=== PATIENT | female | born 1965 | race Caucasian/White ===

== ENCOUNTER → 2023-02-02 | Outpatient (REF) | payer BC | LOC: M SFHCWAGY 12:57 | PROVIDERS: ATTEND Nurse Practitioner Family | DX: Z12.4 Encounter for screening for malignant neoplasm of cervix (principal) ==

== ENCOUNTER → 2023-02-02 | Outpatient (CLI) | payer BC | LOC: M WHC 10:17 | PROVIDERS: ATTEND Nurse Practitioner Family | DX: Z12.31 Encounter for screening mammogram for malignant neoplasm of breast (principal) ==

== ENCOUNTER 2024-01-11 09:30 | Day surgery (SDC) | payer BC ==
[~2024-01-11] VITALS: Ht 160 cm; Wt 91.6 kg
[~2024-01-11 09:30] MED LIST: AMLO1TAB24 PO; CIDA500T2 PO; CLAR10CA3 PO; CURC500C PO; D-101000 PO; FAMO20TA PO; LISI20TA35 PO; THERTAB52 PO
[2024-01-11] MEDS: NS 1,000 ML IV ONE (10:30)
[2024-01-11 11:26] VITALS: TEMP 96.7
[2024-01-11 11:46] VITALS: BP 120/92; O2SAT 100
== END 2024-01-11 11:55 | disposition home or self-care (01) ==
LOC: M OPP 09:30
PROVIDERS: ATTEND Surgery
DX: Z12.11 Encounter for screening for malignant neoplasm of colon (principal); D12.6 Benign neoplasm of colon, unspecified; K64.1 Second degree hemorrhoids; K63.89 Other specified diseases of intestine; Z87.891 Personal history of nicotine dependence; Z79.1 Long term (current) use of non-steroidal anti-inflammatories (NSAID); Z79.899 Other long term (current) drug therapy

== ENCOUNTER → 2024-02-08 | Outpatient (CLI) | payer BC | LOC: M WHC 10:16 | PROVIDERS: ATTEND Internal Medicine | DX: Z12.31 Encounter for screening mammogram for malignant neoplasm of breast (principal); R92.323 Mammographic fibroglandular density, bilateral breasts; I50.9 Heart failure, unspecified; I27.20 Pulmonary hypertension, unspecified ==

== ENCOUNTER → 2025-02-11 | Outpatient (CLI) | payer OTHER | LOC: M WHC 10:07 | PROVIDERS: ATTEND Nurse Practitioner Adult Health | DX: Z12.31 Encounter for screening mammogram for malignant neoplasm of breast (principal); R92.323 Mammographic fibroglandular density, bilateral breasts ==

== ENCOUNTER → 2025-05-06 | Outpatient (CLI) | payer OTHER | LOC: M RAD 16:30 | PROVIDERS: ATTEND Nurse Practitioner Family | DX: R07.89 Other chest pain (principal) ==

== ENCOUNTER → 2025-06-03 | Outpatient (REF) | payer OTHER | LOC: M LAB REF 14:18 | PROVIDERS: ATTEND Nurse Practitioner Adult Health | DX: N39.0 Urinary tract infection, site not specified (principal) ==